=== PATIENT | female | born 1965 | race Caucasian/White ===

== ENCOUNTER 2024-03-09 20:21 | Inpatient (IN) | payer MEDICAID ==
[~2024-03-09] VITALS: Ht 152.4 cm; Wt 65.3 kg
--- NOTE | 2024-03-09 21:01 | NUR ---
ERMD at bedside. MSE in progress.
[2024-03-09] MEDS ORDERED: HYDROMORPHONE 1 MG/1 ML DISP.SYRIN ONE (21:19)
[2024-03-09] MEDS ORDERED: ONDANSETRON 4 MG/2 ML VIAL ONE (21:19)
[2024-03-09 21:22] LABS: BASOPHILS # (AUTO) 0.3 K/UL (0.0-0.2); BASOPHILS % (AUTO) 2.4 % (0.0-2.0); EOSINOPHILS # (AUTO) 0.2 K/uL (0.0-0.7); EOSINOPHILS % (AUTO) 1.4 % (0.0-7.0); HEMATOCRIT 45.8 % (31.2-41.9); HEMOGLOBIN 15.2 g/dL (10.9-14.3); LYMPHOCYTES # (AUTO) 3.6 K/uL (0.8-4.8); MEAN CORPUSCULAR HEMOGLOBIN 31.1 uug (24.7-32.8); MEAN CORPUSCULAR HGB CONC 33 g/dL (32.3-35.6); MEAN CORPUSCULAR VOLUME 93.5 fL (75.5-95.3); MONOCYTES # (AUTO) 0.7 K/uL (0.1-1.30); MONOCYTES % (AUTO) 5.4 % (0.0-11.0); NEUTROPHILS # (AUTO) 7.6 K/uL (1.8-8.9); NEUTROPHILS % (AUTO) 61.8 % (38.5-71.5); PLATELET COUNT (AUTO) 246 K/uL (179-408); RED BLOOD CELL COUNT(AUTO) 4.89 MIL/uL (3.63-4.92); RED CELL DISTRIBUTION WIDTH 14.7 % (12.3-17.7); WHITE BLOOD COUNT (AUTO) 12.4 K/uL (3.8-11.8)
--- NOTE | 2024-03-09 21:25 | NUR ---
#20G established on the right forearm. Blood samples were taken and handed to Bobby (chemical lab supervisor) .
[2024-03-09 21:28] LABS: DIFFERENTIAL COMMENT 1
[2024-03-09] MEDS: IV NORMAL SALINE 1000 ML BAG IV ONE (21:30)
[2024-03-09] MEDS: ONDANSETRON 4 MG/2 ML VIAL IV ONE (21:30)
[2024-03-09] MEDS: HYDROMORPHONE 1 MG/1 ML DISP.SYRIN IV ONE (21:30)
--- NOTE | 2024-03-09 21:30 | NUR ---
Administered medication as prescribed. Assisted patient into comfortable position. safety and comfort measures in place. No S/S of distress noted.
--- NOTE | 2024-03-09 21:31 | NUR ---
Patient left to CT.
[2024-03-09 21:40] LABS: ALBUMIN 3.6 g/dL (3.4-5.0); BILIRUBIN,DIRECT 0.2 mg/dL (0.0-0.2); BILIRUBIN,TOTAL 0.4 mg/dL (0.2-1.0); CALCIUM 8.8 mg/dL (8.5-10.1); CREATININE 1.1 mg/dL (0.6-1.3); POTASSIUM 3.4 mmol/L (3.5-5.1); TOTAL PROTEIN, SERUM 6.9 g/dL (6.4-8.2)
--- NOTE | 2024-03-09 21:44 | NUR ---
patient came back from CT
[2024-03-09] MEDS ORDERED: LEVO50TA8 PO (22:48)
[2024-03-09] MEDS ORDERED: CELE200C PO (22:48)
[2024-03-09] MEDS ORDERED: OXYC-128 PO (22:48)
[2024-03-09] MEDS ORDERED: ONDA-104 PO (22:48)
[2024-03-09] MEDS ORDERED: MAG-151 PO (22:48)
[2024-03-09] MEDS ORDERED: ACET-73 PO (22:48)
[2024-03-09] MEDS ORDERED: MAGN400O6 PO (22:48)
[2024-03-09] MEDS ORDERED: MECL-159 PO (22:48)
[2024-03-09] MEDS ORDERED: ATOR40TA PO (22:48)
[2024-03-09] MEDS ORDERED: CHOL10005 PO (22:48)
[2024-03-09] MEDS ORDERED: PANT40TA49 PO (22:48)
[2024-03-09] MEDS ORDERED: VALTAREN TOP (22:48)
[2024-03-09] MEDS ORDERED: LEVE500T20 PO (22:48)
[2024-03-09] MEDS ORDERED: ACET325T53 PO (22:48)
[2024-03-09] MEDS ORDERED: GABA-532 PO (22:48)
[2024-03-09] MEDS ORDERED: ZOLP5TAB8 PO (22:48)
[2024-03-09] MEDS ORDERED: TAMS-3 PO (22:48)
[2024-03-09] MEDS ORDERED: AMLO-212 PO (22:48)
[2024-03-09] MEDS ORDERED: LIDO30AD10 TD (22:48)
[2024-03-09] MEDS ORDERED: HYDR-894 PO (22:48)
--- NOTE | 2024-03-09 23:23 | NUR ---
urine sample was collected and sent to the lab.
[2024-03-09 23:27] LABS: *BILIRUBIN,URIN NEGATIVE (NEGATIVE); *BLOOD, URINE 2+ (NEGATIVE); *CLARITY,URINE CLEAR (CLEAR); *COLOR,URINE YELLOW (YELLOW); *KETONES,URINE NEGATIVE (NEGATIVE); *PROTEIN,URINE NEGATIVE (NEGATIVE); *UROBILINOGEN,URINE 0.2 E.U./dl (NORMAL); LEUKOCYTE ESTERASE ,URINE 3+ (NEGATIVE); NITRITE, URINE POSITIVE (NEGATIVE); UGLUCOSE NEGATIVE (NEGATIVE)
--- NOTE | 2024-03-09 23:51 | NUR ---
Ultrasound at bedside.
[2024-03-10 00:01] LABS: BACTERIA,URINE MODERATE /HPF (NONE SEEN); WBC,URINE 50-80 /HPF (0-3)
[2024-03-10 00:02] LABS: SQUAMOUS EPITHELIAL CELL,UR FEW /HPF (NONE SEEN)
[2024-03-10] MEDS ORDERED: METRONIDAZOLE 500 MG/NS 100ML 100 ML IV ONE (00:41)
[2024-03-10] MEDS: METRONIDAZOLE 500 MG/NS 100 ML PIGGYBACK IV ONE (00:49)
[2024-03-10] MEDS: CEFTRIAXONE 1 G in IV DEXTROSE 5% 50 ML IV ONE (01:54)
[2024-03-10] MEDS ORDERED: CEFTRIAXONE /D5W 50ML IVPB **ER PYXIS IV ONE (01:55)
[2024-03-10] MEDS ORDERED: ONDANSETRON 4 MG/2 ML VIAL IV PRN (02:45)
--- NOTE | 2024-03-10 02:47 | NUR ---
Dr. Menendez is on the phone with DIEUDONNE Rogers for possible admission.
--- NOTE | 2024-03-10 03:29 | NUR ---
called med surg. Report was given to Emilie CRUZ.
[2024-03-10 04:00] VITALS: BP 138/81; TEMP 97.1; O2SAT 91
--- NOTE | 2024-03-10 04:15 | NUR ---
RECEIVED PATIENT VIA W/C FROM ER. PATIENT IS A/O X4. VERY AGITATED UPON ARRIVAL TO THE FLOOR. PATIENT IS UPSET STATING THAT WE WENT THROUGH HER BELONGINGS WITHOUT HER PERMISSION, BUT PATIENT WAS ASKED AND NOTIFIED THAT HER BELONGING UPON ADMISSION MUSTY BE CHECKED AND PATIENT HAD VERBALIZED UNDERSTANDING. ONCE CIGARETTES, CRATING AND MOVING ESTIMATOR AND TASER WERE FOUND IN [employer], PATIENT BECAME VERY UPSET AND RUDE WITH STAFF. SLIP TENDER NOTIFIED AND SPOKE WITH PATIENT AT BEDSIDE. PATIENT DENIES ANY PAIN OR DISCOMFORT AT THIS TIME. H/L INTACT AND PATENT, NOTED TO RIGHT FA #20 GAUGE. ORIENTED PATIENT TO ROOM AND CALL LIGHT. CALL LIGHT IN REACH. BED ALARM ON. ALL NEEDS ATTENDED.
[2024-03-10] MEDS: IV NS 1000 ML 1,000 ML IV PRN (04:25)
[2024-03-10] MEDS: POTASSIUM CHLORIDE 50 ML IV SCH (04:40)
[2024-03-10] MEDS ORDERED: PIPERACILLIN/TAZOBACTAM/D5W 50 ML IV ONE (05:46)
[2024-03-10] MEDS: PIPERACILLIN SODIUM/TAZOBACTAM 3.375 G in IV DEXTROSE 5% 50 ML IV ONE (05:51)
[2024-03-10 06:58] LABS: BASOPHILS % (AUTO) 0.3 % (0.0-2.0); EOSINOPHILS # (AUTO) 0.2 K/uL (0.0-0.7); EOSINOPHILS % (AUTO) 1.5 % (0.0-7.0); HEMATOCRIT 40.1 % (31.2-41.9); HEMOGLOBIN 13.5 g/dL (10.9-14.3); LYMPHOCYTES # (AUTO) 3.1 K/uL (0.8-4.8); LYMPHOCYTES % (AUTO) 30.5 % (20.5-51.5); MEAN CORPUSCULAR HEMOGLOBIN 31.6 uug (24.7-32.8); MEAN CORPUSCULAR HGB CONC 34 g/dL (32.3-35.6); MEAN CORPUSCULAR VOLUME 93.6 fL (75.5-95.3); MONOCYTES # (AUTO) 0.8 K/uL (0.1-1.30); MONOCYTES % (AUTO) 8.1 % (0.0-11.0); NEUTROPHILS % (AUTO) 59.6 % (38.5-71.5); PLATELET COUNT (AUTO) 209 K/uL (179-408); RED BLOOD CELL COUNT(AUTO) 4.28 MIL/uL (3.63-4.92); RED CELL DISTRIBUTION WIDTH 14.3 % (12.3-17.7); WHITE BLOOD COUNT (AUTO) 10.1 K/uL (3.8-11.8)
[2024-03-10 06:59] LABS: BILIRUBIN,DIRECT 0.2 mg/dL (0.0-0.2); BILIRUBIN,TOTAL 0.5 mg/dL (0.2-1.0); CALCIUM 8.3 mg/dL (8.5-10.1); MAGNESIUM 2.1 mg/dL (1.8-2.4); PHOSPHOROUS 3.2 mg/dL (2.5-4.9); POTASSIUM 3.8 mmol/L (3.5-5.1); TOTAL PROTEIN, SERUM 5.9 g/dL (6.4-8.2)
[2024-03-10 07:01] LABS: DIFFERENTIAL COMMENT 1
[2024-03-10] MEDS: METRONIDAZOLE 500 MG/NS 100ML 500 MG in PREMIXED 1 EACH IV SCH (08:25)
[2024-03-10] MEDS: NICOTINE 14 MG/24HR PATCH TD SCH (08:25)
--- NOTE | 2024-03-10 08:45 | NUR ---
Received pt A/O*4, calm, on NPO, on room air, no s/s of distress noted, no pain complain, call light in reach, safety measures in place. MRSA test taken and sent to lab.
[2024-03-10] MEDS ORDERED: METRONIDAZOLE 500 MG/NS 100ML 500 MG in PREMIXED 1 EACH IV SCH (09:00)
[2024-03-10] MEDS ORDERED: DICY20TA11 PO (09:25)
[2024-03-10] MEDS ORDERED: ACET-2030 PO (09:25)
[2024-03-10 11:46] VITALS: BP 153/63; TEMP 98.3; O2SAT 93
[2024-03-10] MEDS ORDERED: PIPERACILLIN SODIUM/TAZOBACTAM 3.375 G in IV DEXTROSE 5% 50 ML IV SCH (12:00)
--- NOTE | 2024-03-10 12:11 | NUR ---
Pt had complain of pounding headache. Doctor notified. Addendum: 03/10/24 at 1218 by ITZEL DAVIDSON RN Doctor ordered Tylenol 650mg Q6HR PRN.
[2024-03-10] MEDS: ACETAMINOPHEN 325 MG TABLET PO PRN (12:36)
--- NOTE | 2024-03-10 12:36 | NUR ---
Tylenol administered with sip of water per doctor order for headache.
[2024-03-10] MEDS ORDERED: ALBUTEROL SULFATE 2.5 MG/3 ML NEBU NEB PRN (13:15)
[2024-03-10] MEDS ORDERED: VALTAREN TOP PRN (13:15)
--- NOTE | 2024-03-10 14:25 | NUR ---
the medications Protonix 40 mg , Keppra 50mg, [id number] mg not administered because patient is for CT scan.
[2024-03-10] MEDS: LEVOTHYROXINE SODIUM 50 MCG TABLET PO SCH (14:59)
[2024-03-10] MEDS: levETIRAcetam 500 MG TABLET PO SCH (14:59)
[2024-03-10] MEDS: PANTOPRAZOLE SODIUM 40 MG TABLET.DR PO SCH (14:59)
[2024-03-10 16:02] VITALS: BP 131/78; TEMP 98.4; O2SAT 95
[2024-03-10] MEDS: AMLODIPINE 5 MG TABLET PO SCH (16:26)
[2024-03-10] MEDS: GABAPENTIN 300 MG CAPSULE PO SCH (16:26)
[2024-03-10] MEDS ORDERED: GABAPENTIN 100 MG CAPSULE PO SCH (17:00)
--- NOTE | 2024-03-10 18:05 | NUR ---
Dr. Mccarty needs to know the result of "HIDA" when it's ready. Primary RN will endorse it to rn shift mgr nurse to inform doctor about the result. If there is any occlusion, pt needs to be on NPO after midnight in order to have surgery tomorrow. Addendum: 03/10/24 at 1816 by ITZEL DAVIDSON RN In addition, pt need to sign the consent for for "Laparoscopic cholecystectomy possible open". RN will endorse it to rn shift mgr nurse.
--- NOTE | 2024-03-10 18:41 | NUR ---
Pt's sister, Blair called and asked about pt. RN already explained to her that we are waiting for the HIDA result and pt may have surgery tomorrow. Blair number: [phone]
[2024-03-10 19:00] VITALS: BP 117/62; TEMP 98; O2SAT 95
--- NOTE | 2024-03-10 19:30 | NUR ---
NSG: Received patient lying in bed alert and oriented x3, ambulate with assist. pt not in respiratory distress. Dx: intractable pain at chest implant site. denies pain and discomfort at this time. call light w/in reach. Addendum: 03/10/24 at 1999 by SOWMYA MARES LVN wrong charting.
--- NOTE | 2024-03-10 19:58 | NUR ---
NSG: Received pt lying in bed. alert and oriented x4,ambulate with assist. no c/o pain or discomfort at this time. assisted to use bathroom.and back to bed. call light w/in reach.
[2024-03-10] MEDS: ZOLPIDEM 5 MG TABLET PO SCH (20:33)
--- NOTE | 2024-03-10 22:00 | NUR ---
nsg: nuclear Hepatobiliary study report received. report Doctor Cindy made aware. waiting for response.
[2024-03-10] MEDS: CEFTRIAXONE 1 G in IV DEXTROSE 5% 50 ML IV SCH (22:42)
--- NOTE | 2024-03-10 22:44 | NUR ---
nsg: patient iv infiltrated , pt refused iv line at this time, Dr. wing made aware, stated ok.
--- NOTE | 2024-03-10 23:44 | NUR ---
NSG: NEW IV LINE PLACED VIA ER NURSE. ON RIGHT HAND GAUGE 22.
--- NOTE | 2024-03-10 23:45 | NUR ---
JESSIKA; D5NS@75CC/HRS STARTED MD ORDERED.
--- NOTE | 2024-03-11 | NUR ---
patient is npo as md ordered.
[2024-03-11] MEDS: MORPHINE SULFATE 2 MG/1 ML DISP.SYRIN IV PRN (00:34)
[2024-03-11] MEDS: IV D5/ 0.9% NACL 1,000 ML IV PRN (00:44)
--- NOTE | 2024-03-11 03:00 | NUR ---
Dr. White called and stated keep patient npo.i will come in the morning to see the patient.
--- NOTE | 2024-03-11 05:25 | NUR ---
NSG: Pt slept well through the night. ivf running well. kept npo after midnight as md ordered. assisted patient with adl's. denies pain or discomfort at this time. resting in bed comfortably. call light w/in reach.
[2024-03-11 06:00] VITALS: BP 132/68; TEMP 98.5; O2SAT 94
[2024-03-11 07:49] LABS: BASOPHILS % (AUTO) 0.3 % (0.0-2.0); EOSINOPHILS # (AUTO) 0.2 K/uL (0.0-0.7); EOSINOPHILS % (AUTO) 2.4 % (0.0-7.0); HEMATOCRIT 43.2 % (31.2-41.9); HEMOGLOBIN 14.5 g/dL (10.9-14.3); LYMPHOCYTES # (AUTO) 1.8 K/uL (0.8-4.8); LYMPHOCYTES % (AUTO) 18.5 % (20.5-51.5); MEAN CORPUSCULAR HEMOGLOBIN 31.6 uug (24.7-32.8); MEAN CORPUSCULAR HGB CONC 34 g/dL (32.3-35.6); MEAN CORPUSCULAR VOLUME 94.2 fL (75.5-95.3); MONOCYTES # (AUTO) 0.8 K/uL (0.1-1.30); MONOCYTES % (AUTO) 8.2 % (0.0-11.0); NEUTROPHILS % (AUTO) 70.6 % (38.5-71.5); PLATELET COUNT (AUTO) 206 K/uL (179-408); RED BLOOD CELL COUNT(AUTO) 4.59 MIL/uL (3.63-4.92); RED CELL DISTRIBUTION WIDTH 14.3 % (12.3-17.7); WHITE BLOOD COUNT (AUTO) 9.9 K/uL (3.8-11.8)
[2024-03-11 07:52] LABS: DIFFERENTIAL COMMENT 1
[2024-03-11 08:18] LABS: ALBUMIN 3.1 g/dL (3.4-5.0); BILIRUBIN,TOTAL 0.4 mg/dL (0.2-1.0); CALCIUM 8.5 mg/dL (8.5-10.1); MAGNESIUM 2.2 mg/dL (1.8-2.4); PHOSPHOROUS 2.8 mg/dL (2.5-4.9); POTASSIUM 3.2 mmol/L (3.5-5.1); TOTAL PROTEIN, SERUM 6.2 g/dL (6.4-8.2)
[2024-03-11] MEDS ORDERED: Medication Not On Formulary EA (Cholecalciferol (Vitamin D3) (Vitamin D3) 1,000 UNIT) PO SCH (09:00)
[2024-03-11] MEDS: CHOLECALCIFEROL 1,000 UNIT TABLET PO SCH (09:06)
[2024-03-11 09:12] LABS: THYROID STIMULATING HORMONE 2.051 mIU/mL (0.358-3.740)
--- NOTE | 2024-03-11 09:15 | NUR ---
ASSISTED THE MID-LINE NURSE BECAUSE PATIENT WAS NOT COOPERATIVE WITH THE MIDLINE INSERTION. PATIENT WILL GO SURGERY AT AROUND 1PM.
[2024-03-11] MEDS: POTASSIUM CHLORIDE 50 ML IV SCH (10:39)
[2024-03-11] MEDS: METRONIDAZOLE 500 MG/NS 100ML 500 MG in PREMIXED 1 EACH IV SCH (10:42)
[2024-03-11 10:58] VITALS: BP 133/69; TEMP 98.2; O2SAT 95
--- NOTE | 2024-03-11 13:28 | NUR ---
PATIENT WAS PICKED-UP BY ER NURSE FOR SURGERY.
[2024-03-11] MEDS ORDERED: PROPOFOL 200 MG/20 ML BOTTLE ONE (14:00)
--- NOTE | 2024-03-11 15:00 | NUR ---
FLAGYL IV NOT GIVEN. PATIENT STILL IN SURGERY AT THIS TIME.
[2024-03-11] MEDS ORDERED: BUPIVACAINE/EPI PF 0.5% 10 ML VIAL ONE (15:02)
[2024-03-11] MEDS ORDERED: LIDOCAINE HCL 1% 20 ML VIAL ONE (15:03)
[2024-03-11] MEDS ORDERED: FENTANYL CITRATE 100 MCG/2 ML AMPUL ONE (16:23)
[2024-03-11] MEDS ORDERED: MIDAZOLAM HCL 2 MG/2 ML VIAL ONE (16:33)
--- NOTE | 2024-03-11 17:45 | NUR ---
PATIENT CAME FROM OR LAPAROSCOPIC CHOLECYSTECTOMY. FAXED POST OP ORDER TO PHARMACY. CONTINUE PREVIOUS ORDER. CLEAR LIQUID DIET ORDERED. PATIENT REFUSED TO TAKE ALL THE 5PM MEDS BECAUSE SHE IS SO UPSET. ACCORDING TO PATIENT ' SHE WAS OF THE ER PEOPLE OF WHAT THEY DID TO HER". " LET ME REST. VITAL SIGNS CHECKED. PATIENT CLEAN, DRY, AND COMFORTABLE AT THIS TIME.
[2024-03-11 18:00] VITALS: BP 148/79; TEMP 98.2; O2SAT 90
[2024-03-11 18:19] VITALS: BP 147/80; TEMP 98.3; O2SAT 92
[2024-03-11 19:00] VITALS: BP 172/99; TEMP 98.6; O2SAT 91
--- NOTE | 2024-03-11 19:30 | NUR ---
Received patient in bed awake, AAO x4, agitated and trying to get out of bed. Not in respiratory distress. KENZIE drain to right side of abdomen in place with serosanguineous output. Complain of 9/10 abdominal pain. Safety measures in place. Continue plan of care.
[2024-03-11 21:01] VITALS: O2SAT 92
[2024-03-11] MEDS: hydrALAZINE HCL 25 MG TABLET PO PRN (21:41)
[2024-03-12 06:00] VITALS: BP 147/82; TEMP 99.1; O2SAT 91
--- NOTE | 2024-03-12 07:12 | NUR ---
Slept well in between care, no noted distress. KENZIE drain intact noted with 20ML serosanguineous output. Pain med administered as ordered with relief.
--- NOTE | 2024-03-12 08:00 | NUR ---
Patient a+ox4, no acute respiratory distress noted, KENZIE drain intact, no complaints at this time, all need attended.
[2024-03-12 08:04] LABS: BASOPHILS # (AUTO) 0.2 K/UL (0.0-0.2); BASOPHILS % (AUTO) 1.4 % (0.0-2.0); EOSINOPHILS # (AUTO) 0.1 K/uL (0.0-0.7); EOSINOPHILS % (AUTO) 0.7 % (0.0-7.0); HEMATOCRIT 40.1 % (31.2-41.9); HEMOGLOBIN 13.7 g/dL (10.9-14.3); LYMPHOCYTES # (AUTO) 2.4 K/uL (0.8-4.8); LYMPHOCYTES % (AUTO) 21.6 % (20.5-51.5); MEAN CORPUSCULAR HEMOGLOBIN 31.8 uug (24.7-32.8); MEAN CORPUSCULAR HGB CONC 34 g/dL (32.3-35.6); MEAN CORPUSCULAR VOLUME 93.5 fL (75.5-95.3); MONOCYTES % (AUTO) 8.5 % (0.0-11.0); NEUTROPHILS # (AUTO) 7.6 K/uL (1.8-8.9); NEUTROPHILS % (AUTO) 67.8 % (38.5-71.5); PLATELET COUNT (AUTO) 199 K/uL (179-408); RED BLOOD CELL COUNT(AUTO) 4.29 MIL/uL (3.63-4.92); RED CELL DISTRIBUTION WIDTH 14.5 % (12.3-17.7); WHITE BLOOD COUNT (AUTO) 11.2 K/uL (3.8-11.8)
[2024-03-12 08:25] LABS: DIFFERENTIAL COMMENT 1
[2024-03-12 08:35] LABS: ALBUMIN 2.9 g/dL (3.4-5.0); BILIRUBIN,TOTAL 0.6 mg/dL (0.2-1.0); CALCIUM 8.4 mg/dL (8.5-10.1); MAGNESIUM 1.9 mg/dL (1.8-2.4); PHOSPHOROUS 2.9 mg/dL (2.5-4.9); POTASSIUM 3.2 mmol/L (3.5-5.1)
[2024-03-12] MEDS: LIDOCAINE 5% PATCH TD PRN (09:27)
[2024-03-12] MEDS: MAGNESIUM SULFATE/D5W 100 ML IV SCH (10:51)
[2024-03-12 11:52] VITALS: BP 120/63; TEMP 98.8; O2SAT 91
[2024-03-12] MEDS: POTASSIUM CHLORIDE 50 ML IV SCH (13:09)
[2024-03-12 15:52] VITALS: BP 138/76; TEMP 98; O2SAT 92
[2024-03-12 16:33] VITALS: O2SAT 94
--- NOTE | 2024-03-12 18:29 | NUR ---
Patient a+ox4, watching tv, tolerating food intake well, no c/o nausea or discomfort.
[2024-03-13 04:00] VITALS: TEMP 98.3
--- NOTE | 2024-03-13 07:30 | NUR ---
0730 PT LAYING IN THE BED A/OX4, PT IS AGITATED. PT ON RA NO SOB OR DISTRESS NOTED, COMPLAIN OF ABDOMINAL PAIN 03/24. KENZIE IS IN PLACE, INTACT. IV SITE IS PATENT. SAFETY MEASURES IN PLACE, CALL LIGHT IN REACH.
--- NOTE | 2024-03-13 07:48 | NUR ---
KENZIE drainage was 25cc during assistant shift supervisor.
[2024-03-13 08:31] LABS: BASOPHILS # (AUTO) 0.2 K/UL (0.0-0.2); BASOPHILS % (AUTO) 1.4 % (0.0-2.0); EOSINOPHILS # (AUTO) 0.2 K/uL (0.0-0.7); EOSINOPHILS % (AUTO) 1.9 % (0.0-7.0); HEMATOCRIT 39.4 % (31.2-41.9); HEMOGLOBIN 13.1 g/dL (10.9-14.3); LYMPHOCYTES # (AUTO) 2.6 K/uL (0.8-4.8); LYMPHOCYTES % (AUTO) 23.5 % (20.5-51.5); MEAN CORPUSCULAR HEMOGLOBIN 31.2 uug (24.7-32.8); MEAN CORPUSCULAR HGB CONC 33 g/dL (32.3-35.6); MEAN CORPUSCULAR VOLUME 93.9 fL (75.5-95.3); MONOCYTES # (AUTO) 0.9 K/uL (0.1-1.30); MONOCYTES % (AUTO) 8.2 % (0.0-11.0); NEUTROPHILS # (AUTO) 7.2 K/uL (1.8-8.9); PLATELET COUNT (AUTO) 188 K/uL (179-408); RED CELL DISTRIBUTION WIDTH 14.7 % (12.3-17.7); WHITE BLOOD COUNT (AUTO) 11.1 K/uL (3.8-11.8)
[2024-03-13 08:33] LABS: DIFFERENTIAL COMMENT 1
[2024-03-13 08:49] LABS: CREATININE 1.1 mg/dL (0.6-1.3); MAGNESIUM 2.2 mg/dL (1.8-2.4); POTASSIUM 3.2 mmol/L (3.5-5.1)
--- NOTE | 2024-03-13 09:35 | NUR ---
0828 MORPHINE WAS GIVEN FOR ABDOMINAL PAIN 03/24.
[2024-03-13] MEDS: POTASSIUM CHLORIDE 20 MEQ TAB.PRT.SR PO ONE (10:06)
[2024-03-13 10:55] VITALS: BP 160/84; TEMP 99.4; O2SAT 94
--- NOTE | 2024-03-13 11:23 | NUR ---
pt os AOx4, IV fluid is running. pt tolerated Po medications.
[2024-03-13 16:14] VITALS: BP 131/71; TEMP 98.5; O2SAT 94
--- NOTE | 2024-03-13 18:45 | NUR ---
1523 PT WAS MEDICATED WITH MORPHINE FOR C/O OF ABDOMINAL PAIN 02/21. MEDS EFFECTIVE .KENZIE DRAIN 15 ML OF SEROSANGUINEOUS FLUID.
--- NOTE | 2024-03-13 19:20 | NUR ---
PT RECEIVED IN BED, ALERT, ORIENTED X4, AT TIMES CONFUSED. IV ON L MIDLINE 1 LUMEN D5NS WAS RUNNING 75CC/HR. PT REQUESTED TYLENOL FOR HER PAIN.
[2024-03-13 20:00] VITALS: TEMP 99.3
[2024-03-14 06:00] VITALS: TEMP 98.5
--- NOTE | 2024-03-14 07:30 | NUR ---
0730 PT LAYING IN THE BED A/OX4, PT IS CALM. PT ON RA NO SOB OR DISTRESS NOTED, COMPLAIN OF ABDOMINAL PAIN 03/24. KENZIE IS IN PLACE, INTACT. IV SITE IS PATENT. SAFETY MEASURES IN PLACE, CALL LIGHT IN REACH.
[2024-03-14 07:48] LABS: BASOPHILS % (AUTO) 0.4 % (0.0-2.0); EOSINOPHILS # (AUTO) 0.3 K/uL (0.0-0.7); EOSINOPHILS % (AUTO) 2.7 % (0.0-7.0); HEMATOCRIT 40.3 % (31.2-41.9); HEMOGLOBIN 13.5 g/dL (10.9-14.3); LYMPHOCYTES # (AUTO) 2.5 K/uL (0.8-4.8); LYMPHOCYTES % (AUTO) 23.6 % (20.5-51.5); MEAN CORPUSCULAR HEMOGLOBIN 31.6 uug (24.7-32.8); MEAN CORPUSCULAR HGB CONC 33 g/dL (32.3-35.6); MEAN CORPUSCULAR VOLUME 94.6 fL (75.5-95.3); MONOCYTES # (AUTO) 0.8 K/uL (0.1-1.30); NEUTROPHILS # (AUTO) 6.9 K/uL (1.8-8.9); NEUTROPHILS % (AUTO) 65.3 % (38.5-71.5); PLATELET COUNT (AUTO) 201 K/uL (179-408); RED BLOOD CELL COUNT(AUTO) 4.26 MIL/uL (3.63-4.92); RED CELL DISTRIBUTION WIDTH 14.9 % (12.3-17.7); WHITE BLOOD COUNT (AUTO) 10.5 K/uL (3.8-11.8)
[2024-03-14 07:53] LABS: DIFFERENTIAL COMMENT 1
[2024-03-14 08:04] LABS: ALBUMIN 2.8 g/dL (3.4-5.0); BILIRUBIN,TOTAL 0.4 mg/dL (0.2-1.0); CALCIUM 8.7 mg/dL (8.5-10.1); MAGNESIUM 2.1 mg/dL (1.8-2.4); POTASSIUM 3.4 mmol/L (3.5-5.1); TOTAL PROTEIN, SERUM 6.1 g/dL (6.4-8.2)
--- NOTE | 2024-03-14 08:50 | NUR ---
0839 TYLENOL WAS GIVEN FOR PAIN (PT REQUEST)
[2024-03-14] MEDS: POTASSIUM CHLORIDE 20 MEQ TAB.PRT.SR PO ONE (11:29)
--- NOTE | 2024-03-14 11:43 | NUR ---
1143 MORPHINE WAS ADMINISTERED FOR ABDOMINAL PAIN 03/24
[2024-03-14 11:50] VITALS: BP 126/76; TEMP 98.7; O2SAT 92
[2024-03-14 16:30] VITALS: O2SAT 94
[2024-03-14 16:34] VITALS: BP 148/72; TEMP 97.9; O2SAT 94
--- NOTE | 2024-03-14 17:48 | NUR ---
1613 TYLENOL WAS GIVEN FOR PAIN (PT REQUEST)
--- NOTE | 2024-03-14 19:15 | NUR ---
KENZIE DRAINED 25CC
--- NOTE | 2024-03-14 19:15 | NUR ---
pt received in bed.she requested to stop her IV for a while. she is anxious, requested her morphine b/c of her pain in her abdomen. IV on her L upper midline, flashed. Safety and comfort will monitored.
[2024-03-14 20:16] VITALS: BP 148/79; TEMP 98.9
[2024-03-15] VITALS (7 sets, daily range): BP systolic 121–136; BP diastolic 68–81; TEMP 98.2–99.3; O2SAT 90–96
--- NOTE | 2024-03-15 03:43 | NUR ---
Pt requested a sandwich, later she had lidocaine patch for her arm.right now she requested to stop her IV fluid. it was bothering her. She wants to sleep.
--- NOTE | 2024-03-15 07:06 | NUR ---
Pt refused her to continue her IV fluids, and last antibiotic per rn shift mgr. She was tired of getting them how she explain. She was asking for a tea. All needs were attended. She had last Morphine around 0530, and her Lidoderm patch.
[2024-03-15] MEDS: CEFEPIME HCL 1 G in IV DEXTROSE 5% 50 ML IV SCH (11:32)
[2024-03-15] MEDS: ACIDOPHILUS/BULGARICUS CHEW TAB PO SCH (11:36)
[2024-03-15] MEDS: diphenhydrAMINE 50 MG/1 ML VIAL IV PRN (13:31)
--- NOTE | 2024-03-15 15:45 | NUR ---
PT REPORTS HER PAIN IS AT TOLERABLE LEVEL AT THIS TIME, PT WAS ASSISTED TO THE BATHROOM, COMFORT MEASURES PROVIDED, PT IS COMPLIANT WITH IV ANTIBIOTICS, NO DISTRESS NOTED AT THIS TIME, PT IS RESTING IN BED, AT LOW POSITION , CALL LIGHT AT EASY REACH.
[2024-03-15] MEDS: OXYCODONE HCL 5 MG TABLET PO PRN (17:26)
--- NOTE | 2024-03-15 19:30 | NUR ---
pt received in bed resting. IV on her L midline.No IV is running. Bed light in reach. Will monitor.
[2024-03-15] MEDS: METRONIDAZOLE 500 MG TABLET PO SCH (21:19)
--- NOTE | 2024-03-15 23:15 | NUR ---
Pt refused her IV Maxepime. She does not want any IV meds. knows.Charge nurse notified. She had her Oxyvir 10 mg around 30. for her pain.Time by time she is using her Oxygen 2LPM. S O2 96%.
[2024-03-16 03:40] VITALS: O2SAT 95
[2024-03-16 05:58] VITALS: BP 107/63; TEMP 98.8; O2SAT 90
--- NOTE | 2024-03-16 08:30 | NUR ---
MIDLINE INFILTRATED AND PTATIENT CONTINUE TO REFUSED IV ANTIBIOTIC. WILL RETRY REINSERTION
--- NOTE | 2024-03-16 09:15 | NUR ---
MEDICATED WITH PRN OXYIR FOR PAIN ABDOMEN AND SHOULDER. WILL OBSERVE
[2024-03-16] MEDS: REMEDY ESSENTIAL ZINC PASTE 113 GM TP PRN (09:57)
--- NOTE | 2024-03-16 10:00 | NUR ---
GOOD RELIEF FROM PAIN AFTER OXYIR
--- NOTE | 2024-03-16 11:28 | NUR ---
DR ARMSTRONG IN MADE AWARE OPF PATIENT REFUSING IVF AND IV MAXEPIME WITH ORDER TO DC BOTH IV AND IV ATB
[2024-03-16 11:36] VITALS: BP 110/63; TEMP 98.2; O2SAT 91
--- NOTE | 2024-03-16 13:22 | NUR ---
SEEN BY DR HERNDON, KENZIE REMOVED WITH 5 MLS OF FLUID SEROUS DRAINAGE. SEE NOTES
--- NOTE | 2024-03-16 13:24 | NUR ---
MEDICATED WITH TYLENOL FOR ABDOMINAL PAIN 09/21 WILL OBSERVE
--- NOTE | 2024-03-16 14:00 | NUR ---
RESTING AND LESS PAIN OBSERVE
[2024-03-16 15:41] VITALS: BP 123/72; TEMP 98.8; O2SAT 91
--- NOTE | 2024-03-16 17:23 | NUR ---
MEDICATED WITH PRN OXYIR FOR GEN PAIN BUT MORE ON THE LEFT SHOULDER 02/21. OBSERVE
--- NOTE | 2024-03-16 17:58 | NUR ---
resting comfortably in bed after prn meds.
[2024-03-16 20:49] VITALS: BP 131/81; TEMP 98.7; O2SAT 92
[2024-03-17 04:30] VITALS: BP 120/62; TEMP 98.8; O2SAT 90
--- NOTE | 2024-03-17 06:52 | NUR ---
Patient refused dose of Flagyl this AM. She states she's tired of pills being pushed down her throat and that it won't work because she has chronic UTIs. Addendum: 03/17/24 at 0654 by AUDIE PHOENIX RN Medication was discarded as it was already opened for administration.
[2024-03-17 08:09] VITALS: BP 137/62; O2SAT 86
--- NOTE | 2024-03-17 08:30 | NUR ---
PATIENT TOOK ALL HER MEDS. NO PAIN AT THIS TIME. ALL NEEDS ATTENDED AND MET.
[2024-03-17 11:16] VITALS: BP 119/70; TEMP 97.6; O2SAT 90
[2024-03-17 12:30] VITALS: O2SAT 90
[2024-03-17 15:17] VITALS: BP 120/60; TEMP 98.8; O2SAT 90
--- NOTE | 2024-03-17 17:06 | NUR ---
PATIENT DISCHARGED BACK TO [facility]. PICKED UP BY AMBULANCE VIA GURNEY. BELONGINGS/VALUABLES AND "CONTRABAND" GIVEN TO PATIENT. PATIENT TEACHING PROVIDED ESPECIALLY ABOUT THE ONE WEEK APPT. TO DR. HERNDON AFTER A WEEK. CONTACT NUMBER OF DR. HERNDON GIVEN.
[2024-03-18 01:08] LABS: HEPATITIS B SURFACE AB, QUAL Reactive (.); HEPATITIS C VIRUS ANTIBODY Non Reactive (Non Reactive)
== END 2024-03-17 16:45 | disposition home health service (06) | DRG 263 ==
LOC: ER 20:22 → MEDSURG3 03-10 02:47
PROVIDERS: ADMIT Nurse Practitioner Family; ATTEND Internal Medicine
PROC: 05HB33Z Insertion of Infusion Device into Right Basilic Vein, Percutaneous Approach (ICD-10-PCS; principal; 2024-03-11)
PROC: 05HF33Z Insertion of Infusion Device into Left Cephalic Vein, Percutaneous Approach (ICD-10-PCS; principal; 2024-03-11)
PROC: 0FT44ZZ Resection of Gallbladder, Percutaneous Endoscopic Approach (ICD-10-PCS; 2024-03-11)
DX: K80.12 Calculus of gallbladder with acute and chronic cholecystitis without obstruction (principal); D68.59 Other primary thrombophilia; N30.00 Acute cystitis without hematuria; K82.8 Other specified diseases of gallbladder; E66.9 Obesity, unspecified; E87.6 Hypokalemia; R74.01 Elevation of levels of liver transaminase levels; K57.30 Diverticulosis of large intestine without perforation or abscess without bleeding; Z86.79 Personal history of other diseases of the circulatory system; Z74.09 Other reduced mobility; E78.5 Hyperlipidemia, unspecified; D35.00 Benign neoplasm of unspecified adrenal gland; K66.0 Peritoneal adhesions (postprocedural) (postinfection); N20.0 Calculus of kidney; Z68.28 Body mass index [BMI] 28.0-28.9, adult; F17.210 Nicotine dependence, cigarettes, uncomplicated; Z88.0 Allergy status to penicillin; I10 Essential (primary) hypertension; Z66 Do not resuscitate; E03.9 Hypothyroidism, unspecified; Z79.899 Other long term (current) drug therapy
CPT/HCPCS: 36415; 71045; 78445; 83690; 83735; 84100; 84443; 85025; 85730; 86706; 86803; 93005; A9537; G0378; J0690; J0692; J0696; J1170; J1200; J2250; J2270; J2405; J2543; J3010; J3475; J3480; J3490; J7040; J7042

== ENCOUNTER 2024-03-28 16:51 | Emergency (ER) | payer MEDICAID ==
[~2024-03-28] VITALS: Ht 152.4 cm; Wt 65.3 kg
[~2024-03-28 16:51] MED LIST: ACET-73 PO; ACET325T53 PO; AMLO-212 PO; ATOR40TA PO; CELE200C PO; CHOL10005 PO; DICY20TA11 PO; GABA-532 PO; LEVE500T20 PO; LEVO50TA8 PO; LIDO30AD10 TD; MAG-151 PO; MAGN400O6 PO; MECL-159 PO; ONDA-104 PO; OXYC-128 PO; PANT40TA49 PO; TAMS-3 PO; VALTAREN TOP; ZOLP5TAB8 PO
[2024-03-28] MEDS: IV NORMAL SALINE 1000 ML BAG IV ONE (17:01)
[2024-03-28 17:20] VITALS: O2SAT 94
[2024-03-28 17:27] LABS: BASOPHILS # (AUTO) 0.1 K/UL (0.0-0.2); BASOPHILS % (AUTO) 1.2 % (0.0-2.0); EOSINOPHILS # (AUTO) 0.2 K/uL (0.0-0.7); EOSINOPHILS % (AUTO) 2.2 % (0.0-7.0); HEMATOCRIT 41.9 % (31.2-41.9); HEMOGLOBIN 13.9 g/dL (10.9-14.3); LYMPHOCYTES # (AUTO) 2.1 K/uL (0.8-4.8); LYMPHOCYTES % (AUTO) 21.9 % (20.5-51.5); MEAN CORPUSCULAR HEMOGLOBIN 31.2 uug (24.7-32.8); MEAN CORPUSCULAR HGB CONC 33 g/dL (32.3-35.6); MEAN CORPUSCULAR VOLUME 94.1 fL (75.5-95.3); MONOCYTES # (AUTO) 0.5 K/uL (0.1-1.30); NEUTROPHILS # (AUTO) 6.7 K/uL (1.8-8.9); NEUTROPHILS % (AUTO) 69.7 % (38.5-71.5); PLATELET COUNT (AUTO) 328 K/uL (179-408); RED BLOOD CELL COUNT(AUTO) 4.45 MIL/uL (3.63-4.92); RED CELL DISTRIBUTION WIDTH 14.2 % (12.3-17.7); WHITE BLOOD COUNT (AUTO) 9.6 K/uL (3.8-11.8)
[2024-03-28 17:33] LABS: DIFFERENTIAL COMMENT 1
[2024-03-28 17:46] LABS: CALCIUM 8.7 mg/dL (8.5-10.1); CREATININE 1.3 mg/dL (0.6-1.3); POTASSIUM 3.2 mmol/L (3.5-5.1)
[2024-03-28 17:52] LABS: BILIRUBIN,DIRECT 0.1 mg/dL (0.0-0.2); BILIRUBIN,TOTAL 0.4 mg/dL (0.2-1.0); TOTAL PROTEIN, SERUM 6.5 g/dL (6.4-8.2)
== END 2024-03-28 19:21 | disposition home or self-care (01) ==
LOC: ER 16:52
DX: R14.0 Abdominal distension (gaseous) (principal); E78.5 Hyperlipidemia, unspecified; E03.9 Hypothyroidism, unspecified; Z79.891 Long term (current) use of opiate analgesic; Z79.1 Long term (current) use of non-steroidal anti-inflammatories (NSAID); Z98.890 Other specified postprocedural states; Z79.899 Other long term (current) drug therapy; Z88.0 Allergy status to penicillin
CPT/HCPCS: 99285; 96360; 71045; 80076; 80048; 83690; 85025; 87040; 36415; 93005; 83605; J7040; A4606; A4663

== ENCOUNTER 2024-04-22 14:51 | Inpatient (IN) | payer MEDICAID ==
[~2024-04-22] VITALS: Ht 152.4 cm; Wt 72.6 kg
[2024-04-22 16:02] LABS: BASOPHILS # (AUTO) 0.1 K/UL (0.0-0.2); BASOPHILS % (AUTO) 1.3 % (0.0-2.0); EOSINOPHILS # (AUTO) 0.2 K/uL (0.0-0.7); EOSINOPHILS % (AUTO) 2.1 % (0.0-7.0); HEMATOCRIT 41.4 % (31.2-41.9); HEMOGLOBIN 13.7 g/dL (10.9-14.3); LYMPHOCYTES # (AUTO) 3.4 K/uL (0.8-4.8); LYMPHOCYTES % (AUTO) 35.8 % (20.5-51.5); MEAN CORPUSCULAR HEMOGLOBIN 31.5 uug (24.7-32.8); MEAN CORPUSCULAR HGB CONC 33 g/dL (32.3-35.6); MEAN CORPUSCULAR VOLUME 94.9 fL (75.5-95.3); MONOCYTES # (AUTO) 0.7 K/uL (0.1-1.30); MONOCYTES % (AUTO) 7.2 % (0.0-11.0); NEUTROPHILS # (AUTO) 5.1 K/uL (1.8-8.9); NEUTROPHILS % (AUTO) 53.6 % (38.5-71.5); PLATELET COUNT (AUTO) 237 K/uL (179-408); RED BLOOD CELL COUNT(AUTO) 4.36 MIL/uL (3.63-4.92); RED CELL DISTRIBUTION WIDTH 14.4 % (12.3-17.7); WHITE BLOOD COUNT (AUTO) 9.5 K/uL (3.8-11.8)
[2024-04-22 16:08] LABS: DIFFERENTIAL COMMENT 1
[2024-04-22 16:11] LABS: CALCIUM 8.5 mg/dL (8.5-10.1); CARBON DIOXIDE 24 mmol/L (21-32); CHLORIDE 108 mmol/L (98-107); CREATININE 1.1 mg/dL (0.6-1.3); GLUCOSE 132 mg/dL (74-106); POTASSIUM 3.3 mmol/L (3.5-5.1); SODIUM SERUM 145 mmol/L (136-145); UREA NITROGEN, BLOOD 14 mg/dL (7-18)
[2024-04-22 16:24] LABS: ALANINE AMINOTRANSFERASE 112 U/L (14-59); ALBUMIN 3.1 g/dL (3.4-5.0); ALKALINE PHOSPHATASE 212 U/L (50-136); ASPARTATE AMINOTRANSFERASE 51 U/L (15-37); BILIRUBIN,DIRECT 0.1 mg/dL (0.0-0.2); BILIRUBIN,TOTAL 0.4 mg/dL (0.2-1.0); NT-PRO BNP 152 pg/mL (0-125); TOTAL PROTEIN, SERUM 6.3 g/dL (6.4-8.2)
[2024-04-22] MEDS ORDERED: MORPHINE SULFATE 4 MG/1 ML DISP.SYRIN ONE (18:17)
[2024-04-22] MEDS ORDERED: ONDANSETRON 4 MG/2 ML VIAL ONE (18:17)
[2024-04-22] MEDS ORDERED: REMEDY ESSENTIAL ZINC PASTE 113 GM TP PRN (18:30)
[2024-04-22] MEDS ORDERED: MAGNESIUM HYDROXIDE 30 ML LIQUID UDC PO PRN (18:30)
[2024-04-22] MEDS ORDERED: VALTAREN TOP PRN (18:30)
[2024-04-22] MEDS: MORPHINE SULFATE 4 MG/1 ML DISP.SYRIN IV ONE (18:34)
[2024-04-22] MEDS: ONDANSETRON 4 MG/2 ML VIAL IV ONE (18:34)
[2024-04-22] MEDS ORDERED: MISCELLANEOUS MED XX ONE ×2 (22:15)
[2024-04-22] MEDS ORDERED: NICOTINE 14 MG/24HR PATCH TD ONE (22:45)
[2024-04-22] MEDS ORDERED: HYDROCODONE/APAP 10-325 MG TABLET ONE (23:43)
[2024-04-22] MEDS: HYDROCODONE/APAP 10-325 MG TABLET PO PRN (23:56)
[2024-04-23] MEDS: IV NS 1000 ML 1,000 ML IV PRN (00:20)
[2024-04-23 00:26] VITALS: BP 118/78; TEMP 98.6; O2SAT 92
[2024-04-23] MEDS: ZOLPIDEM 5 MG TABLET PO SCH (00:37)
[2024-04-23] MEDS: TAMSULOSIN HCL 0.4 MG CAP.SR.24H PO SCH ×2 (00:37→20:19)
[2024-04-23] MEDS ORDERED: LIDOCAINE 5% PATCH TD PRN ×2 (05:30→09:00)
[2024-04-23 05:38] VITALS: BP 123/74; TEMP 98.1; O2SAT 91
[2024-04-23] MEDS: PANTOPRAZOLE SODIUM 40 MG TABLET.DR PO SCH (06:14)
[2024-04-23] MEDS: LEVOTHYROXINE SODIUM 50 MCG TABLET PO SCH (06:14)
[2024-04-23] MEDS: CHOLECALCIFEROL 1,000 UNIT TABLET PO SCH (08:08)
[2024-04-23] MEDS: GABAPENTIN 300 MG CAPSULE PO SCH (08:09)
[2024-04-23] MEDS: CELECOXIB 200 MG CAPSULE PO SCH (08:09)
[2024-04-23] MEDS: NICOTINE 14 MG/24HR PATCH TD SCH (08:09)
[2024-04-23] MEDS: levETIRAcetam 500 MG TABLET PO SCH (08:09)
[2024-04-23] MEDS: AMLODIPINE 5 MG TABLET PO SCH (08:09)
[2024-04-23] MEDS ORDERED: GABAPENTIN 100 MG CAPSULE PO SCH (09:00)
[2024-04-23] MEDS ORDERED: Medication Not On Formulary EA (Cholecalciferol (Vitamin D3) (Vitamin D3) 1,000 UNIT) PO SCH (09:00)
[2024-04-23 11:49] VITALS: BP 116/52; TEMP 98.4; O2SAT 94
[2024-04-23] MEDS: OXYCODONE/APAP 5-325 MG TABLET PO PRN (12:45)
[2024-04-23 15:45] VITALS: BP 127/60; TEMP 98.8; O2SAT 96
[2024-04-23 16:00] VITALS: O2SAT 96
[2024-04-23] MEDS: ACETAMINOPHEN 325 MG TABLET PO PRN (17:36)
[2024-04-23] MEDS ORDERED: GABA300C PO (18:05)
[2024-04-23] MEDS ORDERED: DULO20CA PO (18:13)
[2024-04-23 19:00] VITALS: BP 122/57; TEMP 99; O2SAT 91
[2024-04-24 06:00] VITALS: BP 145/75; TEMP 98.8; O2SAT 94
[2024-04-24] MEDS: GABAPENTIN 300 MG CAPSULE PO SCH (08:08)
[2024-04-24] MEDS: DULOXETINE 20 MG CAPSULE.DR PO SCH (08:08)
[2024-04-24 09:51] LABS: BASOPHILS # (AUTO) 0.1 K/UL (0.0-0.2); BASOPHILS % (AUTO) 0.6 % (0.0-2.0); EOSINOPHILS # (AUTO) 0.2 K/uL (0.0-0.7); EOSINOPHILS % (AUTO) 1.8 % (0.0-7.0); HEMATOCRIT 41.7 % (31.2-41.9); HEMOGLOBIN 14.1 g/dL (10.9-14.3); LYMPHOCYTES # (AUTO) 2.6 K/uL (0.8-4.8); LYMPHOCYTES % (AUTO) 26.4 % (20.5-51.5); MEAN CORPUSCULAR HEMOGLOBIN 31.5 uug (24.7-32.8); MEAN CORPUSCULAR HGB CONC 34 g/dL (32.3-35.6); MEAN CORPUSCULAR VOLUME 93.3 fL (75.5-95.3); MONOCYTES # (AUTO) 0.6 K/uL (0.1-1.30); NEUTROPHILS # (AUTO) 6.5 K/uL (1.8-8.9); NEUTROPHILS % (AUTO) 65.2 % (38.5-71.5); PLATELET COUNT (AUTO) 230 K/uL (179-408); RED BLOOD CELL COUNT(AUTO) 4.46 MIL/uL (3.63-4.92); WHITE BLOOD COUNT (AUTO) 9.9 K/uL (3.8-11.8)
[2024-04-24 09:54] LABS: DIFFERENTIAL COMMENT 1
[2024-04-24 10:05] LABS: ALBUMIN 3.2 g/dL (3.4-5.0); BILIRUBIN,DIRECT 0.1 mg/dL (0.0-0.2); BILIRUBIN,TOTAL 0.6 mg/dL (0.2-1.0); CALCIUM 8.8 mg/dL (8.5-10.1); CREATININE 1.1 mg/dL (0.6-1.3); POTASSIUM 3.7 mmol/L (3.5-5.1); TOTAL PROTEIN, SERUM 6.6 g/dL (6.4-8.2)
[2024-04-24 11:59] VITALS: BP 138/68; TEMP 98.3; O2SAT 98
[2024-04-24] MEDS: ONDANSETRON 4 MG/2 ML VIAL IV PRN (13:21)
[2024-04-24 15:50] VITALS: BP 116/67; TEMP 98; O2SAT 97
[2024-04-24 19:00] VITALS: BP 133/71; TEMP 98.7; O2SAT 95
[2024-04-25 06:00] VITALS: BP 112/63; TEMP 98.6; O2SAT 94
[2024-04-25 11:36] VITALS: BP 140/71; TEMP 99.1; O2SAT 94
[2024-04-25 15:50] VITALS: BP 120/51; TEMP 99; O2SAT 91
[2024-04-25 19:00] VITALS: BP 142/62; TEMP 98; O2SAT 91
[2024-04-26 06:00] VITALS: BP 110/53; TEMP 98.1; O2SAT 95
[2024-04-26 11:30] VITALS: BP 108/56; TEMP 98.8; O2SAT 91
[2024-04-26 16:15] VITALS: BP 126/61; TEMP 98.9; O2SAT 93
[2024-04-26 20:00] VITALS: BP 130/63; TEMP 98.7; O2SAT 94
[2024-04-27 06:00] VITALS: BP 125/70; TEMP 97.9; O2SAT 94
[2024-04-27] MEDS ORDERED: LIDO30AD10 TD (09:25)
[2024-04-27] MEDS ORDERED: TAMS-3 PO (09:25)
[2024-04-27] MEDS ORDERED: CHOL100062 PO (09:25)
[2024-04-27] MEDS ORDERED: ACET325T53 PO (09:25)
[2024-04-27] MEDS ORDERED: NICO-671 TD (09:25)
[2024-04-27 11:30] VITALS: BP 130/82; TEMP 97.8; O2SAT 93
[2024-04-27 15:42] VITALS: BP 140/82; TEMP 98.8; O2SAT 93
[2024-04-27 16:58] VITALS: BP 140/82
== END 2024-04-27 19:15 | DRG 347 ==
LOC: ER 14:51 → MEDSURG3 18:20
PROVIDERS: ADMIT Nurse Practitioner Acute Care; ATTEND Nurse Practitioner Acute Care
DX: M51.372 Other intervertebral disc degeneration, lumbosacral region with discogenic back pain and lower extremity pain (principal); E44.1 Mild protein-calorie malnutrition; E88.09 Other disorders of plasma-protein metabolism, not elsewhere classified; Z66 Do not resuscitate; R29.6 Repeated falls; G89.29 Other chronic pain; E03.9 Hypothyroidism, unspecified; Z90.49 Acquired absence of other specified parts of digestive tract; Z79.899 Other long term (current) drug therapy; Z88.0 Allergy status to penicillin; E87.6 Hypokalemia; I10 Essential (primary) hypertension; Z79.890 Hormone replacement therapy; M21.372 Foot drop, left foot; I69.119 Unspecified symptoms and signs involving cognitive functions following nontraumatic intracerebral hemorrhage; K42.9 Umbilical hernia without obstruction or gangrene; M15.9 Polyosteoarthritis, unspecified
CPT/HCPCS: 36415; 71045; 72192; 84484; 85025; 85730; 97535-GO-CO; A4663; G0378; J2270; J2405; J7040

== ENCOUNTER 2024-06-15 13:59 | Emergency (ER) | payer MEDICAID, OTHER ==
[~2024-06-15] VITALS: Ht 152.4 cm; Wt 65.3 kg
[~2024-06-15 13:59] MED LIST changes: +CHOL100062 PO; +DULO20CA PO; -GABA-532 PO; +GABA300C PO; +NICO-671 TD
[2024-06-15] MEDS ORDERED: DICL100G31 TP (14:31)
[2024-06-15] MEDS ORDERED: HYDR-894 PO (14:31)
[2024-06-15] MEDS ORDERED: CYCL5TAB PO (14:31)
[2024-06-15] MEDS ORDERED: MAG-5 PO (14:31)
[2024-06-15] MEDS: IV NORMAL SALINE 1000 ML BAG IV ONE (14:43)
[2024-06-15 14:45] LABS: *BILIRUBIN,URIN NEGATIVE (NEGATIVE); *BLOOD, URINE 1+ (NEGATIVE); *CLARITY,URINE CLEAR (CLEAR); *COLOR,URINE YELLOW (YELLOW); *KETONES,URINE NEGATIVE (NEGATIVE); *PROTEIN,URINE TRACE (NEGATIVE); *UROBILINOGEN,URINE 0.2 E.U./dl (NORMAL); LEUKOCYTE ESTERASE ,URINE 1+ (NEGATIVE); NITRITE, URINE POSITIVE (NEGATIVE); PH,URINE 5.5 (5.0-8.0); UGLUCOSE NEGATIVE (NEGATIVE)
[2024-06-15 14:46] LABS: BASOPHILS # (AUTO) 0.1 K/UL (0.0-0.2); BASOPHILS % (AUTO) 0.5 % (0.0-2.0); EOSINOPHILS # (AUTO) 0.1 K/uL (0.0-0.7); EOSINOPHILS % (AUTO) 0.7 % (0.0-7.0); HEMATOCRIT 42.2 % (31.2-41.9); HEMOGLOBIN 14.3 g/dL (10.9-14.3); LYMPHOCYTES # (AUTO) 1.6 K/uL (0.8-4.8); LYMPHOCYTES % (AUTO) 16.7 % (20.5-51.5); MEAN CORPUSCULAR HGB CONC 34 g/dL (32.3-35.6); MEAN CORPUSCULAR VOLUME 94.6 fL (75.5-95.3); MONOCYTES # (AUTO) 0.8 K/uL (0.1-1.30); MONOCYTES % (AUTO) 8.1 % (0.0-11.0); NEUTROPHILS # (AUTO) 7.3 K/uL (1.8-8.9); PLATELET COUNT (AUTO) 113 K/uL (179-408); RED BLOOD CELL COUNT(AUTO) 4.46 MIL/uL (3.63-4.92); RED CELL DISTRIBUTION WIDTH 14.3 % (12.3-17.7); WHITE BLOOD COUNT (AUTO) 9.8 K/uL (3.8-11.8)
[2024-06-15 14:49] LABS: DIFFERENTIAL COMMENT 1
[2024-06-15 14:50] LABS: BACTERIA,URINE FEW /HPF (NONE SEEN); SQUAMOUS EPITHELIAL CELL,UR FEW /HPF (NONE SEEN); URINE AMORPHOUS URATE FEW /HPF; WBC,URINE 20-50 /HPF (0-3)
[2024-06-15 14:53] LABS: CARBON DIOXIDE 24 mmol/L (21-32); CHLORIDE 106 mmol/L (98-107); CREATININE 1.3 mg/dL (0.6-1.3); GLUCOSE 106 mg/dL (74-106); SODIUM SERUM 143 mmol/L (136-145); UREA NITROGEN, BLOOD 20 mg/dL (7-18)
[2024-06-15 15:02] LABS: ALANINE AMINOTRANSFERASE 100 U/L (14-59); ALBUMIN 3.3 g/dL (3.4-5.0); ALKALINE PHOSPHATASE 234 U/L (50-136); ASPARTATE AMINOTRANSFERASE 68 U/L (15-37); BILIRUBIN,DIRECT 0.1 mg/dL (0.0-0.2); BILIRUBIN,TOTAL 0.5 mg/dL (0.2-1.0); TOTAL PROTEIN, SERUM 7.2 g/dL (6.4-8.2)
[2024-06-15] MEDS ORDERED: HYDROMORPHONE 1 MG/1 ML DISP.SYRIN ONE (15:22)
[2024-06-15] MEDS ORDERED: ONDANSETRON 4 MG/2 ML VIAL ONE (15:22)
[2024-06-15] MEDS: METRONIDAZOLE 500 MG/NS 100 ML PIGGYBACK IV ONE (15:46)
[2024-06-15] MEDS ORDERED: METRONIDAZOLE 500 MG/NS 100ML 100 ML IV ONE (15:47)
[2024-06-15] MEDS: CEFTRIAXONE 2 G in IV DEXTROSE 5% 100 ML IV ONE (16:30)
[2024-06-15 20:28] VITALS: BP 115/64; O2SAT 97
== END 2024-06-15 20:29 ==
LOC: ER 13:59
DX: E86.0 Dehydration (principal); R11.2 Nausea with vomiting, unspecified; R19.7 Diarrhea, unspecified; I11.9 Hypertensive heart disease without heart failure; E78.00 Pure hypercholesterolemia, unspecified; E03.9 Hypothyroidism, unspecified; Z90.49 Acquired absence of other specified parts of digestive tract; Z79.899 Other long term (current) drug therapy; Z79.1 Long term (current) use of non-steroidal anti-inflammatories (NSAID); Z88.0 Allergy status to penicillin
CPT/HCPCS: 99285; 74176; 96365; 71045; 96361; 96375; 80076; 80048; 81001; 83690; 85025; 84145; 85730; 87040 ×2; 84484; 36415; 93005; 83605; 87086; J0696; J3490; J2405; J7040; A4606; A4663; J1171

== ENCOUNTER 2024-06-26 13:38 | Emergency (ER) | payer OTHER ==
[~2024-06-26] VITALS: Ht 152.4 cm; Wt 65.3 kg
[~2024-06-26 13:38] MED LIST changes: -CHOL100062 PO; +CYCL5TAB PO; +DICL100G31 TP; +HYDR-894 PO; +MAG-5 PO; -MAGN400O6 PO; -NICO-671 TD
[2024-06-26] MEDS ORDERED: HYDROMORPHONE 2 MG/1 ML DISP.SYRIN ONE (15:13)
[2024-06-26] MEDS ORDERED: ONDANSETRON ODT 4 MG TAB.RAPDIS ONE (15:13)
[2024-06-26] MEDS: ONDANSETRON ODT 4 MG TAB.RAPDIS SL ONE (15:15)
[2024-06-26 15:17] VITALS: O2SAT 92
[2024-06-26] MEDS ORDERED: HYDR-3980 PO (15:17)
[2024-06-26] MEDS: HYDROMORPHONE 1 MG/1 ML DISP.SYRIN IM ONE (15:17)
== END 2024-06-26 17:11 | disposition home or self-care (01) ==
LOC: ER 13:38
DX: M54.9 Dorsalgia, unspecified (principal); E78.00 Pure hypercholesterolemia, unspecified; Z79.1 Long term (current) use of non-steroidal anti-inflammatories (NSAID); Z79.899 Other long term (current) drug therapy; Z90.49 Acquired absence of other specified parts of digestive tract; Z88.0 Allergy status to penicillin
CPT/HCPCS: 99283; 96372; J1171; A4606; A4663; Q0162

== ENCOUNTER 2024-12-05 16:01 | Emergency (ER) | payer OTHER ==
[~2024-12-05] VITALS: Ht 152.4 cm; Wt 68.5 kg
[~2024-12-05 16:01] MED LIST changes: +DIPH1TAB PO; +HYDR-3980 PO
[2024-12-05 16:28] LABS: *BILIRUBIN,URIN NEGATIVE (NEGATIVE); *CLARITY,URINE CLEAR (CLEAR); *COLOR,URINE YELLOW (YELLOW); *KETONES,URINE NEGATIVE (NEGATIVE); *PROTEIN,URINE NEGATIVE (NEGATIVE); *UROBILINOGEN,URINE 0.2 E.U./dl (NORMAL); LEUKOCYTE ESTERASE ,URINE NEGATIVE (NEGATIVE); NITRITE, URINE NEGATIVE (NEGATIVE); UGLUCOSE NEGATIVE (NEGATIVE)
[2024-12-05 16:29] LABS: *BLOOD, URINE TRACE (NEGATIVE)
[2024-12-05] MEDS ORDERED: IV NORMAL SALINE 1000 ML BAG IV ONE (16:30)
[2024-12-05 16:34] LABS: BASOPHILS # (AUTO) 0.1 K/UL (0.0-0.2); BASOPHILS % (AUTO) 1.3 % (0.0-2.0); DIFFERENTIAL COMMENT 1; EOSINOPHILS # (AUTO) 0.1 K/uL (0.0-0.7); EOSINOPHILS % (AUTO) 1.3 % (0.0-7.0); HEMATOCRIT 45.1 % (31.2-41.9); HEMOGLOBIN 15.3 g/dL (10.9-14.3); LYMPHOCYTES # (AUTO) 2.9 K/uL (0.8-4.8); LYMPHOCYTES % (AUTO) 25.6 % (20.5-51.5); MEAN CORPUSCULAR HEMOGLOBIN 30.7 uug (24.7-32.8); MEAN CORPUSCULAR HGB CONC 34 g/dL (32.3-35.6); MEAN CORPUSCULAR VOLUME 90.5 fL (75.5-95.3); MONOCYTES # (AUTO) 0.8 K/uL (0.1-1.30); MONOCYTES % (AUTO) 7.3 % (0.0-11.0); NEUTROPHILS # (AUTO) 7.2 K/uL (1.8-8.9); NEUTROPHILS % (AUTO) 64.5 % (38.5-71.5); PLATELET COUNT (AUTO) 277 K/uL (179-408); RED BLOOD CELL COUNT(AUTO) 4.99 MIL/uL (3.63-4.92); RED CELL DISTRIBUTION WIDTH 13.4 % (12.3-17.7); WHITE BLOOD COUNT (AUTO) 11.1 K/uL (3.8-11.8)
[2024-12-05] MEDS ORDERED: KETOROLAC TROMETHAMINE 30 MG INJ ONE (16:38)
[2024-12-05 16:39] LABS: RBC,URINE 0-3 /HPF (0-3); SQUAMOUS EPITHELIAL CELL,UR FEW /HPF (NONE SEEN); WBC,URINE 0-3 /HPF (0-3)
[2024-12-05 16:40] LABS: BACTERIA,URINE FEW /HPF (NONE SEEN)
[2024-12-05] MEDS: KETOROLAC TROMETHAMINE 15 MG INJ IM ONE (16:40)
[2024-12-05 16:47] LABS: ALANINE AMINOTRANSFERASE 27 U/L (14-59); ALBUMIN 3.6 g/dL (3.4-5.0); ALKALINE PHOSPHATASE 190 U/L (50-136); ASPARTATE AMINOTRANSFERASE 22 U/L (15-37); BILIRUBIN,DIRECT 0.1 mg/dL (0.0-0.2); BILIRUBIN,TOTAL 0.3 mg/dL (0.2-1.0); CARBON DIOXIDE 28 mmol/L (21-32); CHLORIDE 105 mmol/L (98-107); CREATININE 1.4 mg/dL (0.6-1.3); GLUCOSE 100 mg/dL (74-106); LIPASE 23 U/L (16-77); POTASSIUM 3.4 mmol/L (3.5-5.1); SODIUM SERUM 144 mmol/L (136-145); TOTAL PROTEIN, SERUM 7.5 g/dL (6.4-8.2); UREA NITROGEN, BLOOD 24 mg/dL (7-18)
[2024-12-05 16:53] LABS: CALCIUM 9.9 mg/dL (8.5-10.1)
[2024-12-05] MEDS ORDERED: FLUT9.9S16 (16:56)
[2024-12-05] MEDS ORDERED: MAGN400O6 PO (16:56)
[2024-12-05] MEDS ORDERED: NICO-671 TOP (16:56)
[2024-12-05] MEDS ORDERED: LOPE2CAP14 PO (16:56)
[2024-12-05] MEDS ORDERED: FURO20TA4 PO (16:56)
[2024-12-05] MEDS ORDERED: ALBU8.5H8 INH (16:56)
[2024-12-05] MEDS ORDERED: LOSA50TA39 PO (16:56)
[2024-12-05] MEDS ORDERED: ACET-3102 PO (18:32)
[2024-12-05] MEDS ORDERED: ACETAMINOPHEN 500 MG TABLET ONE (19:41)
[2024-12-05] MEDS: ACETAMINOPHEN 500 MG TABLET PO ONE (19:45)
[2024-12-05 19:55] VITALS: BP 138/66; O2SAT 95
== END 2024-12-05 20:00 ==
LOC: ER 16:17
DX: R10.9 Unspecified abdominal pain (principal); E03.9 Hypothyroidism, unspecified; E11.9 Type 2 diabetes mellitus without complications; E78.5 Hyperlipidemia, unspecified; I11.9 Hypertensive heart disease without heart failure; I25.2 Old myocardial infarction; I69.354 Hemiplegia and hemiparesis following cerebral infarction affecting left non-dominant side; Z79.1 Long term (current) use of non-steroidal anti-inflammatories (NSAID); Z79.899 Other long term (current) drug therapy; Z86.16 Personal history of COVID-19; Z90.49 Acquired absence of other specified parts of digestive tract; Z88.0 Allergy status to penicillin
CPT/HCPCS: 99285; 74176; 76770; 80076; 80048; 81001; 83690; 85025; 87086; 84484; 36415; 93005; 96372; J1885; A4606; A4663; A9150

== ENCOUNTER 2024-12-08 10:22 | Emergency (ER) | payer OTHER ==
[~2024-12-08] VITALS: Ht 152.4 cm; Wt 68.5 kg
[~2024-12-08 10:22] MED LIST changes: +ACET-3102 PO; +ALBU8.5H8 INH; +FLUT9.9S16; +FURO20TA4 PO; +LOPE2CAP14 PO; +LOSA50TA39 PO; +MAGN400O6 PO; +NICO-671 TOP
[2024-12-08] MEDS ORDERED: HYDROCODONE/APAP 5-325MG TABLET ONE (11:29)
[2024-12-08] MEDS: HYDROCODONE/APAP 5-325MG TABLET PO ONE (11:29)
[2024-12-08] MEDS ORDERED: CLIN300C12 PO (11:30)
[2024-12-08] MEDS ORDERED: IBUP-1955 PO (11:30)
[2024-12-08 12:37] VITALS: BP 134/65; O2SAT 95
== END 2024-12-08 12:38 | disposition home or self-care (01) ==
LOC: ER 10:22
DX: K04.7 Periapical abscess without sinus (principal); E03.9 Hypothyroidism, unspecified; E11.9 Type 2 diabetes mellitus without complications; E78.5 Hyperlipidemia, unspecified; G40.909 Epilepsy, unspecified, not intractable, without status epilepticus; I10 Essential (primary) hypertension; K21.9 Gastro-esophageal reflux disease without esophagitis; I25.2 Old myocardial infarction; Z79.1 Long term (current) use of non-steroidal anti-inflammatories (NSAID); Z79.899 Other long term (current) drug therapy; Z86.16 Personal history of COVID-19; Z88.0 Allergy status to penicillin; Z90.49 Acquired absence of other specified parts of digestive tract; Z99.3 Dependence on wheelchair; Z86.69 Personal history of other diseases of the nervous system and sense organs; Z87.19 Personal history of other diseases of the digestive system
CPT/HCPCS: A4606; A4663

== ENCOUNTER 2024-12-10 21:49 | Emergency (ER) | payer OTHER ==
[~2024-12-10] VITALS: Ht 154.9 cm; Wt 68.0 kg
[~2024-12-10 21:49] MED LIST changes: +CLIN300C12 PO; +IBUP-1955 PO
[2024-12-11] MEDS ORDERED: HYDROMORPHONE 1 MG/1 ML DISP.SYRIN ONE
[2024-12-11] MEDS ORDERED: diphenhydrAMINE 50 MG/1 ML VIAL ONE
[2024-12-11] MEDS: diphenhydrAMINE 50 MG/1 ML VIAL IM ONE (00:28)
[2024-12-11] MEDS: HYDROMORPHONE 1 MG/1 ML DISP.SYRIN IM ONE (00:30)
[2024-12-11 02:00] VITALS: BP 122/78; TEMP 98.2; O2SAT 92
== END 2024-12-11 02:00 ==
LOC: ER 22:08
DX: S70.11XA Contusion of right thigh, initial encounter (principal); S70.12XA Contusion of left thigh, initial encounter; E03.9 Hypothyroidism, unspecified; E11.9 Type 2 diabetes mellitus without complications; E78.5 Hyperlipidemia, unspecified; I10 Essential (primary) hypertension; I25.2 Old myocardial infarction; K21.9 Gastro-esophageal reflux disease without esophagitis; Z79.1 Long term (current) use of non-steroidal anti-inflammatories (NSAID); Z79.899 Other long term (current) drug therapy; Z86.16 Personal history of COVID-19; Z88.0 Allergy status to penicillin; Z90.49 Acquired absence of other specified parts of digestive tract; Z86.69 Personal history of other diseases of the nervous system and sense organs; Z87.09 Personal history of other diseases of the respiratory system; Z87.448 Personal history of other diseases of urinary system; Z87.42 Personal history of other diseases of the female genital tract; W22.8XXA Striking against or struck by other objects, initial encounter; Y93.89 Activity, other specified; Y92.89 Other specified places as the place of occurrence of the external cause; Y99.8 Other external cause status
CPT/HCPCS: 99284; 73551 ×2; 96372 ×2; J1200; J1171; A4606; A4663